=== PATIENT | male | born 1965 | race Caucasian/White ===

== ENCOUNTER 2017-06-13 07:39 | Outpatient (CLI) | payer BC ==
[2017-06-13] MEDS ORDERED: IRON DEXTRAN COMPLEX 975 MG in NORMAL SALINE 1000 ML 1,000 ML IV PRN (08:00)
[2017-06-13] MEDS ORDERED: NORMAL SALINE 250 ML IV PRN (08:00)
[2017-06-13] MEDS ORDERED: IRON DEXTRAN COMPLEX 25 MG in SYRINGE, DISPOSABLE, 1 EACH IV PRN (08:00)
[2017-06-13] MEDS ORDERED: DIPHENHYDRAMINE HCL 50 MG/ML VIAL IV PRN (08:00)
[2017-06-13] MEDS ORDERED: ACETAMINOPHEN 325 MG TABLET PO PRN (08:00)
[2017-06-13 09:58] VITALS: BP 139/81
== END 2017-06-13 15:00 | disposition home or self-care (01) ==
LOC: II 07:39 → 5TH 07:43 → II 15:00
PROVIDERS: ATTEND Internal Medicine
PROC: 3E033GC Introduction of Other Therapeutic Substance into Peripheral Vein, Percutaneous Approach (ICD-10-PCS; principal; 2017-06-13)
DX: D50.9 Iron deficiency anemia, unspecified (principal)
CPT/HCPCS: 96365; 96366; 96374; J1200; J1750; J7030; J3490; 96375

== ENCOUNTER 2018-04-03 09:31 | Emergency (ER) | payer OTHER, BC ==
--- NOTE | 2018-04-03 09:54 | ER Document Report ---
ED Medical Screen (RME) - General Chief Complaint: Leg Pain Stated Complaint: LEG PAIN Time Seen by Provider: 04/03/18 09:44 Mode of Arrival: Ambulatory Information source: Patient TRAVEL OUTSIDE OF THE [place] IN LAST 30 DAYS: No - HPI Patient complains to provider of: Leg pain Onset: Other - 53-year-old male presents for evaluation of unilateral leg swelling over the last 1 day from the [place]. His doctor was concerned that he may have a DVT as he has been treated previously for rectal cancer. He has had cellulitis in the past however this is very similar to that. - Related Data Allergies/Adverse Reactions: No Known Drug Allergies Allergy (Verified 04/03/18 09:51) Past Medical History - Social History Chew tobacco use (# tins/day): No Frequency of alcohol use: Occasional Drug Abuse: None - Past Medical History Cardiac Medical History: Reports: Hx Coronary Artery Disease, Hx Hypercholesterolemia, Hx Hypertension Denies: Hx Heart Attack Pulmonary Medical History: Denies: Hx Asthma, Hx Bronchitis, Hx COPD, Hx Pneumonia Neurological Medical History: Denies: Hx Cerebrovascular Accident, Hx Seizures Renal/ Medical History: Denies: Hx Peritoneal Dialysis Musculoskeltal Medical History: Denies Hx Arthritis Past Surgical History: Reports: Hx Abdominal Surgery. Denies: Hx Pacemaker - Immunizations Hx Diphtheria, Pertussis, Tetanus Vaccination: No History of Influenza Vaccine for 02/2017 - 07/2017 Season: Yes Influenza Administration Date for 02/2017 - 07/2017 Season: 02/05/17 Physical Exam - Vital signs Vitals: Temp Pulse Resp BP Pulse Ox 98.0 F 88 18 135/78 H 95 04/03/18 09:34 04/03/18 09:34 04/03/18 09:34 04/03/18 09:34 04/03/18 09:34 Course - Re-evaluation Re-evalutation: 04/03/18 09:53 53-year-old with unilateral leg swelling in the right side with warmth and erythema in the skin. M concern that this could represent a developing cellulitis. His doctor was concerned that it could represent a DVT. We will place an IV, will obtain blood work. Will obtain ultrasound of the right lower extremity. I have seen and performed a rapid medical screening examination for this patient. They will require further investigation and disposition determination by a second provider . - Vital Signs Vital signs: Temp Pulse Resp BP Pulse Ox 98.0 F 88 18 135/78 H 95 04/03/18 09:34 04/03/18 09:34 04/03/18 09:34 04/03/18 09:34 04/03/18 09:34 Doctor's Discharge - Discharge Referrals: FLAQUITO PAPPAS MD [Primary Care Provider] - Follow up as needed
[2018-04-03 10:34] LABS: HEMATOCRIT 46.6 % (37.9-51.0); HEMOGLOBIN 16.1 g/dL (13.5-17.0); MEAN CORPUSCULAR HEMOGLOBIN 28.2 pg (27.0-33.4); MEAN CORPUSCULAR HGB CONC 34.5 g/dL (32.0-36.0); MEAN CORPUSCULAR VOLUME 82 fl (80-97); PLATELET COUNT 224 10^3/uL (150-450); RED BLOOD COUNT 5.69 10^6/uL (4.35-5.55); RED CELL DISTRIBUTION WIDTH 14.2 % (11.5-14.0); WHITE BLOOD COUNT 20.4 10^3/uL (4.0-10.5)
[2018-04-03] MEDS ORDERED: CEFTRIAXONE INJ 1000 MG VIAL IV ONE (10:36)
--- NOTE | 2018-04-03 10:41 | ER Document Report ---
ED Extremity Problem, Lower - General Chief Complaint: Leg Pain Stated Complaint: LEG PAIN Time Seen by Provider: 04/03/18 09:44 Mode of Arrival: Ambulatory Notes: Patient is here complaining of pain and swelling and redness in his right leg that started about 4 PM yesterday evening. He recalls no injury. Has a history of cellulitis of that same leg once in the past a few years ago which was diagnosed as cellulitis. Patient says he started having pain in the proximal right thigh and right groin region first. Then, this morning, he noted swelling of the leg and the redness around the distal lower leg and ankle. He had chills and sweats last night. He was seen at the [facility] today and sent here to make sure he does not have a DVT in his right leg. History of high blood pressure. Denies diabetes. History of colon cancer surgery about a year ago and has had radiation and chemotherapy. Sees Dr. Pappas. TRAVEL OUTSIDE OF THE [place] IN LAST 30 DAYS: No - Related Data Allergies/Adverse Reactions: No Known Drug Allergies Allergy (Verified 04/03/18 09:51) Past Medical History - General Information source: Patient - Social History Smoking Status: Never Smoker Chew tobacco use (# tins/day): No Frequency of alcohol use: Occasional Drug Abuse: None Family History: None, Reviewed & Not Pertinent Patient has suicidal ideation: No Patient has homicidal ideation: No - Past Medical History Cardiac Medical History: Reports: Hx Coronary Artery Disease, Hx Hypercholesterolemia, Hx Hypertension Past Surgical History: Reports: Hx Abdominal Surgery - Immunizations Hx Diphtheria, Pertussis, Tetanus Vaccination: No Review of Systems - Review of Systems Notes: REVIEW OF SYSTEMS: CONSTITUTIONAL : Has had low-grade fever and chills and sweats. EENT: Denies eye, ear, nose or mouth or throat pain or other symptoms. CARDIOVASCULAR: Denies chest pain. RESPIRATORY: Denies cough, chest congestion, or shortness of breath. GASTROINTESTINAL: Denies abdominal pain or nausea, vomiting, or diarrhea. GENITOURINARY: Denies difficulty or painful urinating, urinary frequency, blood in urine. MUSCULOSKELETAL: Denies back or neck pain. Pain and tenderness to the touch in the right groin region. SKIN: Denies rash or skin lesions. Erythema of the right lower leg from about mid leg down to the ankle. Negative Homans bilaterally. NEUROLOGICAL: Denies LOC or altered mental status. Denies headache. Denies sensory loss or motor deficits. ALL OTHER SYSTEMS REVIEWED AND NEGATIVE. Physical Exam - Vital signs Vitals: Temp Pulse Resp BP Pulse Ox 98.0 F 88 18 135/78 H 95 04/03/18 09:34 04/03/18 09:34 04/03/18 09:34 04/03/18 09:34 04/03/18 09:34 Interpretation: Normal Notes: PHYSICAL EXAMINATION: GENERAL: Well-appearing, in no acute distress. Apparent pain with movement of his right leg. Hip is HEAD: Atraumatic, normocephalic. EYES: Pupils equal round and reactive to light, extraocular movements intact. ENT: oropharynx clear without exudates. Moist mucous membranes. NECK: Normal range of motion, supple. LUNGS: Breath sounds clear and equal bilaterally. HEART: Regular rate and rhythm without murmurs. ABDOMEN: Soft, nontender. No guarding or rebound. No masses. BACK: No tenderness throughout entire back. EXTREMITIES: Patient is tender to press or touch in the right inguinal region and it also hurts to move that area. Otherwise, normal range of motion without pain. NEUROLOGICAL: Normal speech, limping gait due to pain. Normal sensory, motor, and reflex exams. Awake, alert, and oriented x3. Cranial nerves normal. PSYCH: Normal mood, normal affect. SKIN: Warm, dry, no rashes. There is significant warm erythema of the right lower leg from about mid arriola to the foot. Course - Re-evaluation Re-evalutation: 04/03/18 20:07 Discussed the case with Dr. Pappas, and we both feel patient can try a day as an outpatient to see if he responds to the antibiotics given. He is being given 2 g of Rocephin IV and put on Keflex 500 mg 4 times a day for a week, starting tomorrow. - Vital Signs Vital signs: Temp Pulse Resp BP Pulse Ox 97.9 F 82 18 131/76 H 98 04/03/18 12:53 04/03/18 12:53 04/03/18 12:53 04/03/18 12:53 04/03/18 12:53 - Laboratory Result Diagrams: 04/03/18 10:05 04/03/18 10:05 Laboratory results interpreted by me: 04/03/18 04/03/18 10:05 10:05 WBC 20.4 H RBC 5.69 H RDW 14.2 H Seg Neuts % (Manual) 87 H Band Neutrophils % 1 L Lymphocytes % (Manual) 1 L Abs Neuts (Manual) 18.0 H Abs Lymphs (Manual) 0.4 L Abs Monocytes (Manual) 2.0 H Sodium 132.0 L Chloride 91 L Total Bilirubin 2.4 H - Diagnostic Test Radiology reviewed: Image reviewed, Reports reviewed - Venous Doppler of the right lower extremity does not show any evidence of clots. He does have an enlarged lymph node in the right renal region. Discharge - Discharge Clinical Impression: Cellulitis of right leg Condition: Stable Disposition: HOME, SELF-CARE Additional Instructions: CELLULITIS: You have an infection of your skin and underlying soft tissues called cellulitis. This is due to bacteria, which can enter through any break in the skin, or even through an irritated hair follicle. Untreated, cellulitis will usually worsen. Antibiotics are required. Usually, warm packs or warm soaks, and elevation of the infected area are recommended. You should start getting better within 24 to 36 hours. Most infections respond quickly to the right medication. Follow-up care is important, however, to check for abscess (boil) formation, unsuspected foreign body, or resistant infection. If you develop fever, chills, or if the area of infection is becoming rapidly more swollen or painful, call the doctor at once. ANTIBIOTIC THERAPY: You have been given an antibiotic prescription. It's important that you take all the medication, unless instructed otherwise by your physician. Failure to complete the entire course can result in relapse of your condition. Common side effects of antibiotics include nausea, intestinal cramping, or diarrhea. Women may develop vaginal yeast infections, and babies can get yeast (thrush) in the mouth following the use of antibiotics. Contact your physician if you develop significant side effects from this medication. Allergy to this antibiotic can result in hives, wheezing, faintness, or itching. If symptoms of allergy occur, stop the medication and call the doctor. Rocephin You have been given an injection of an antibiotic called Rocephin ( ceftriaxone). Sometimes the injection must be combined with antibiotic pills. For some infections, such as an uncomplicated ear infection, Rocephin provides all the antibiotic that's needed. The antibiotic will be in your body for about two days. For serious infections, we usually repeat doses of Rocephin daily. Side effects are very unusual following a shot. Women may develop vaginal yeast infections, and babies can get yeast (thrush) in the mouth following the use of antibiotics. Contact your physician if you have symptoms with this medication. Allergy to this antibiotic can result in hives, wheezing, faintness, or itching. If symptoms of allergy occur, call the doctor at once. Cephalexin The antibiotic you've been prescribed is a member of the cephalosporin class. This type of antibiotic covers a wide variety of infections, including those of the skin, lungs, and urinary tract. It's useful for staph infections. This antibiotic is slightly similar to the penicillin family. In rare cases , a person who is allergic to penicillin will also be allergic to this medication. If you have had a severe allergic reaction to penicillin, and have not taken this antibiotic since that time, notify your doctor. Antibiotics which cover many germs ("broad spectrum" antibiotics) are more likely to cause diarrhea or "yeast" infections. Women prone to vaginal yeast problems may suffer an attack after taking this antibiotic. In infants, oral thrush (white spots "stuck" on the cheek) or yeast diaper rash may result. See your doctor if these problems occur. Call at once if you develop itching, hives , shortness of breath, or lightheadedness. ORAL NARCOTIC MEDICATION: You have been given a prescription for pain control. This medication is a narcotic. It's best taken with food, as nausea can result if taken on an empty stomach. Don't operate machinery or drive within six hours of taking this medication. Do not combine this medicine with alcohol, or with any medication which can cause sedation (such as cold tablets or sleeping pills) unless you get permission from the physician. Narcotics tend to cause constipation. If possible, drink plenty of fluids and eat a diet high in fiber and fruits. Please be aware that prescription narcotics also have the potential for abuse. People become addicted to these medications because of the general sense of wellbeing that they induce. This feeling along with a significant reduction in tension, anxiety, and aggression provides a stimulating seductive quality to these drugs. Once your pain is under control, we encourage you to discard your unused narcotics. FOLLOW-UP CARE: If you have been referred to a physician for follow-up care, call the physician s office for an appointment as you were instructed or within the next two days. If you experience worsening or a significant change in your symptoms, notify the physician immediately or return to the Emergency Department at any time for re-evaluation. If you are worsening tomorrow, such as high fevers, worsening of the red area of your leg, etc., return for us to reevaluate your condition. Get your medication prescriptions filled and take them starting tomorrow. No work until Monday. Prescriptions: Cephalexin Monohydrate [Keflex 500 mg Capsule] 500 mg PO Q6H 7 Days capsule Oxycodone HCl/Acetaminophen [Percocet 5-325 mg Tablet] 1 - 2 tab PO Q4H PRN #10 tablet PRN Reason: Forms: Return to Work Referrals: FLAQUITO PAPPAS MD [ACTIVE STAFF] - Follow up as needed
[2018-04-03 10:53] LABS: ALANINE AMINOTRANSFERASE 45 U/L (21-72); ALBUMIN 4.3 g/dL (3.5-5.0); ALKALINE PHOSPHATASE 60 U/L (38-126); ANION GAP 13 (5-19); ASPARTATE AMINO TRANSFERASE 29 U/L (17-59); BILIRUBIN,DIRECT 0.4 mg/dL (0.0-0.4); BILIRUBIN,TOTAL 2.4 mg/dL (0.2-1.3); BLOOD UREA NITROGEN 16 mg/dL (7-20); CALCIUM 9.1 mg/dL (8.4-10.2); CARBON DIOXIDE 28 mmol/L (22-30); CHLORIDE 91 mmol/L (98-107); GLUCOSE 95 mg/dL (75-110); TOTAL PROTEIN 7.1 g/dL (6.3-8.2)
[2018-04-03 11:00] LABS: ABSOLUTE LYMPHOCYTES# (MANUAL) 0.4 10^3/uL (0.5-4.7); BAND NEUTROPHILS % (MANUAL) 1 % (3-5); BASOPHILS % (MANUAL) 0 % (0-2); EOSINOPHILS % (MANUAL) 0 % (0-6); LYMPHOCYTES % (MANUAL) 1 % (13-45); MONOCYTES % (MANUAL) 10 % (3-13); SEGMENTED NEUTROPHILS % (MAN) 87 % (42-78); TOTAL CELLS COUNTED 100
[2018-04-03 11:01] LABS: HYPOCHROMASIA SLIGHT; PLATELET COMMENT ADEQUATE; POLYCHROMASIA SLIGHT; TOXIC GRANULATION 1+; TOXIC VACUOLATION PRESENT
--- NOTE | 2018-04-03 11:03 | RADIOLOGY REPORT (SQ) ---
EXAM DESCRIPTION: VENOUS UNILATERAL LOWER COMPLETED DATE/TIME: 04/03/2018 10:46 am REASON FOR STUDY: pain right leg, swelling COMPARISON: 01/30/2014 TECHNIQUE: Dynamic and static bonds scale and color images acquired of the right leg venous system. S elected spectral images acquired with additional compression and augmentation maneuvers. The contrala teral common femoral vein and saphenofemoral junction were also imaged. Images stored on PACS. LIMITATIONS: None. FINDINGS: COMMON FEMORAL: Normal phasicity, compression and augmentation. No visualized echogenic ma terial on bonds scale. No defects on color images. FEMORAL: Normal compression and augmentation. No visualized echogenic material on bonds scale. No defe cts on color images. POPLITEAL: Normal compression, augmentation. No visualized echogenic material on bonds scale. No defec ts on color images. CALF VESSELS: Normal compression, augmentation. No visualized echogenic material on bonds scale. No de fects on color images. GSV and SSV: Normal compression, augmentation. No visualized echogenic material on bonds scale. No def ects on color images. ANY DEEP VENOUS INSUFFICIENCY: Not evaluated. ANY EVIDENCE OF POPLITEAL CYST: No. OTHER: A lymph node is noted in the right upper thigh, probably on a benign reactive basis. CONTRALATERAL COMMON FEMORAL VEIN AND SAPHENOFEMORAL JUNCTION: Normal phasicity, compression and augmentation. No visualized echogenic material on bonds scale. No de fects on color images. IMPRESSION: 1. NO EVIDENCE OF DVT OR SVT IN THE RIGHT LEG. TECHNICAL DOCUMENTATION: JOB ID: [id number] [employer]- All Rights Reserved Reading location - IP/workstation name: [email or web address]
[2018-04-03 12:58] VITALS: BP 131/76
== END 2018-04-03 13:10 | disposition home or self-care (01) ==
LOC: ER 09:31
DX: L03.115 Cellulitis of right lower limb (principal); M79.604 Pain in right leg; I25.10 Atherosclerotic heart disease of native coronary artery without angina pectoris; E78.00 Pure hypercholesterolemia, unspecified; I10 Essential (primary) hypertension; Z85.038 Personal history of other malignant neoplasm of large intestine
CPT/HCPCS: 99284; 96365; 36415; 87040; 85025; 80053; 93971; J0696

== ENCOUNTER → 2018-10-08 | Outpatient (CLI) | payer OTHER, BC ==
[2018-10-08 17:00] LABS: POTASSIUM 4.1 mmol/L (3.6-5.0)
== END ==
LOC: OD 15:52
PROVIDERS: ATTEND Ophthalmology
DX: I10 Essential (primary) hypertension (principal)
CPT/HCPCS: 36415; 80051

== ENCOUNTER → 2019-06-18 | Outpatient (CLI) | payer OTHER ==
--- NOTE | 2019-06-19 09:31 | RADIOLOGY REPORT (SQ) ---
EXAM DESCRIPTION: MRI LT LOWER JOINT WITHOUT COMPLETED DATE/TIME: 06/18/2019 12:02 pm REASON FOR STUDY: LESION IN LEFT KNEE COMPARISON: None. TECHNIQUE: Leftknee images acquired and stored on PACS. Multiplanar images include fat sensitive se quences as T1, water sensitive sequences as FST2 or STIR, cartilage sensitive sequences as FSPD, and gradient echo sequences. LIMITATIONS: None. FINDINGS: JOINT AND BURSAE: No effusion. BONE CORTEX AND MARROW: 4 cm nonaggressive appearing lesion in the distal 3rd of the femur with chond roid matrix. Abuts the posterior cortex, but there does not appear to be scalloping or erosion. Lik leanne large E enchondroma. ACL: Intact. No degeneration or ganglion cyst. PCL: Intact. MCL: Intact. No periligamentous edema or fluid. LCL: Intact. No periligamentous edema or fluid. MEDIAL MENISCUS: No tears. No abnormal signal. LATERAL MENISCUS: No tears. No abnormal signal. MEDIAL COMPARTMENT: Cartilage preserved. No bone bruises or reactive marrow edema. No osteophytes. LATERAL COMPARTMENT: Cartilage preserved. No bone bruises or reactive marrow edema. No osteophytes. PATELLA: Area of focal chondromalacia lateral facet. Retinacular intact. Trochlear cartilage intact . EXTENSOR MECHANISM: Intact. Quadriceps and patella tendons normal. SOFT TISSUES: Adjacent muscles and subcutaneous tissues normal. Normal flow void in popliteal artery and vein. OTHER: No other significant finding. IMPRESSION: No internal derangement. Chondromalacia patella. Large nonaggressive appearing lesion in the distal femur having the appearance of an enchondroma. Le bob measures 4 cm. COMMENT: If there is focal pain in the distal femur, consider bone scan. TECHNICAL DOCUMENTATION: JOB ID: [id number] [employer]- All Rights Reserved Reading location - IP/workstation name: [email or web address]
== END ==
LOC: RAD 11:14
PROVIDERS: ATTEND Clinical Nurse Specialist Adult Health
DX: M25.862 Other specified joint disorders, left knee (principal); M22.42 Chondromalacia patellae, left knee